=== PATIENT | female | born 1955 | race Caucasian/White ===

== ENCOUNTER 2020-08-31 11:30 | Outpatient (CLI) | payer MEDICARE ==
[2012-07-22 13:42] VITALS: BMI 28.4
== END 2020-08-31 23:59 | disposition home or self-care (01) ==
LOC: D.MAMMO 11:30
PROVIDERS: ATTEND Family Medicine
DX: Z12.31 Encounter for screening mammogram for malignant neoplasm of breast (principal)

== ENCOUNTER → 2020-09-08 08:34 | Outpatient (CLI) | payer MEDICARE ==
[2012-07-22 13:42] VITALS: BMI 28.4
--- NOTE | ~2020-09-08 | ST ---
PATIENT:DEVAN AHMADI MEDICAL RECORD: [id number] SEX: F LOCATION:[facility] ORDER #: ADMISSION DATE: 09/08/20 AGE OF PATIENT: 65 REFERRING PHYSICIAN: INTERPRETING PHYSICIAN: FORD CONNELLY MD DATE OF SERVICE: 09/08/2020 NUCLEAR STRESS TEST GATED: Gated is normal with normal wall motion. Normal EF. Calculated EF 74%. FINDINGS: 1. Short axis view: Short axis view shows good uptake along the anterior wall, lateral wall, and inferior wall. 2. Horizontal axis: Horizontal axis confirms good uptake along the anterior wall and inferior wall. 3. Vertical axis: Vertical axis shows good uptake along the lateral wall and septum. FINAL IMPRESSION: 1. Normal gated, normal wall motion, normal EF 74%. 2. Normal SPECT imaging. This scan is felt to be at low risk for any ongoing ischemic coronary artery disease. Continue medical management, risk factor modification is recommended. TRANSINT:[id number] Voice Confirmation ID: [id number] DOCUMENT ID: [id number] FORD CONNELLY MD CC: [id number] DICTATION DATE: 09/11/20 1034 OUTER DIAMETER GRINDER TOOL: 09/12/20 0203 DEP CLI 09/08/20 [place] [id number] [place] [id number]
== END | disposition home or self-care (01) ==
LOC: D.HCCARDIO 09-07 10:30
PROVIDERS: ATTEND Internal Medicine Interventional Cardiology
DX: I20.9 Angina pectoris, unspecified (principal)